=== PATIENT | male | born 1975 | race Caucasian/White ===

== ENCOUNTER → 2023-09-03 | Outpatient (CLI) | payer OTHER ==
--- NOTE | 2023-09-03 16:54 | XR ---
EXAMINATION TYPE: XR chest 2V DATE OF EXAM: 09/03/2023 4:39 PM CLINICAL INDICATION:Male, 47 years old with history of Z87.891; H COMPARISON: None TECHNIQUE: XR chest 2V Frontal and lateral views of the chest. FINDINGS: Lungs/Pleura: There is no evidence of pleural effusion, focal consolidation, or pneumothorax. Pulmonary vascularity: Unremarkable. Heart/mediastinum: Cardiomediastinal silhouette is unremarkable. Musculoskeletal: No acute osseous pathology. IMPRESSION: 1. No acute cardiopulmonary disease process. 2. COPD changes.
== END | disposition home or self-care (01) ==
LOC: RADXRMAIN 16:16
PROVIDERS: ATTEND Internal Medicine
DX: J44.9 Chronic obstructive pulmonary disease, unspecified (principal); Z87.891 Personal history of nicotine dependence
CPT/HCPCS: 71046

== ENCOUNTER 2024-11-08 08:52 | Day surgery (SDC) | payer OTHER ==
[2024-11-08] MEDS: IV FLUID CONTINUATION 1,000 ML IV ONE (10:17)
[2024-11-08 10:27] VITALS: RESP 16; TEMP 97.1
[2024-11-08] MEDS: LACTATED RINGERS 1,000 ML IV SCH (10:29)
[2024-11-08] MEDS ORDERED: PROPOFOL 10 MG/ML 20 ML VIAL IV ONE (11:00)
--- NOTE | 2024-11-08 11:19 | P.PCN ---
Date of Procedure: 11/08/24 Procedure(s) Performed: BRIEF HISTORY: Patient is a 40-year-old pleasant white male scheduled for an elective colonoscopy as a part of screening for colon cancer. PROCEDURE PERFORMED: Colonoscopy. PREOPERATIVE DIAGNOSIS: Screening for colon cancer. IV sedation per Anesthesia. PROCEDURE: After informed consent was obtained, the patient, was brought into the endoscopy unit. IV sedation was administered by Anesthesia under continuous monitoring. Digital rectal examination was normal. Initially the Olympus CF-160 flexible video colonoscope was then inserted in the rectum, gradually advanced into the cecum without any difficulty. Careful examination was performed as the scope was gradually being withdrawn. Ileocecal valve and the appendiceal orifice were visualized and appeared normal. Prep was excellent. Mucosa of the cecum, ascending colon, transverse colon, descending colon, sigmoid colon, and rectum appeared normal. Retroflexion was performed in the rectum and no lesions were seen. The patient tolerated the procedure well. IMPRESSION: Normal-appearing colon from rectum to cecum no evidence of colorectal neoplasia. RECOMMENDATIONS: Findings of this examination were discussed with the patient as well as his family. He was advised to have repeat screening colonoscopy in 10 years..
[2024-11-08 11:48] VITALS: BP 146/94; PULSE 67
== END 2024-11-08 12:08 | disposition home or self-care (01) ==
LOC: ORWHC2ENDO 08:52
PROVIDERS: ATTEND Internal Medicine Gastroenterology
DX: Z12.11 Encounter for screening for malignant neoplasm of colon (principal); I10 Essential (primary) hypertension; E78.5 Hyperlipidemia, unspecified; G47.00 Insomnia, unspecified; F17.200 Nicotine dependence, unspecified, uncomplicated; F12.90 Cannabis use, unspecified, uncomplicated; Z79.899 Other long term (current) drug therapy
CPT/HCPCS: 45378; J2704

== ENCOUNTER 2025-01-05 06:47 | Emergency (ER) | payer OTHER ==
--- NOTE | 2025-01-05 07:03 | ED ---
URI HPI - General Chief Complaint: Upper Respiratory Infection Stated Complaint: cough Time Seen by Provider: 01/05/25 07:03 Source: patient, family, RN notes reviewed Mode of arrival: ambulatory Limitations: no limitations - History of Present Illness Initial Comments: 49-year-old male presenting to the ER for evaluation of cough and fevers. Patient reports for the past 2 days he has had a consistent dry cough. He also notes fevers which have been treated with [id number] Tylenol, last dose around 5 AM. Patient has also tried [id number] Robitussin, Mucinex and Vicks vapor rubs without relief of symptoms. Significant other, at bedside, state patient also tried her albuterol inhaler and Tessalon Perles which did aid with coughing attacks last night. Patient is a smoker. Patient reports his coughing episodes will be so intense that they will cause him to vomit. He denies any nausea, abdominal pain, chest pain, shortness of breath or other complaints - Related Data Home Medications Medication Instructions Recorded Confirmed Cetirizine HCl [Zyrtec] 10 mg PO DAILY 11/07/24 11/08/24 Cyanocobalamin (Vitamin B-12) 1,000 mcg PO DAILY 11/07/24 11/08/24 [Vitamin B-12] Melatonin [Melatonin Tr] 10 mg PO HS 11/07/24 11/08/24 Mirtazapine 30 mg PO HS 11/07/24 11/08/24 Multivitamins, Thera [Multivitamin 1 tab PO DAILY 11/07/24 11/08/24 (formulary)] Potassium Citrate 1 tab PO DAILY 11/07/24 11/08/24 Rosuvastatin [Crestor] 10 mg PO DAILY 11/07/24 11/08/24 lisinopriL [Zestril] 10 mg PO DAILY 11/07/24 11/08/24 rOPINIRole HCL [Requip] 1 mg PO HS 11/07/24 11/08/24 Previous Rx's Medication Instructions Recorded Albuterol Inhaler [Ventolin Hfa 1 - 2 puff INHALATION Q6H PRN #1 01/05/25 Inhaler] each Benzonatate [Tessalon Perles] 100 mg PO TID PRN #15 capsule 01/05/25 Allergies Allergy/AdvReac Type Severity Reaction Status Date / Time No Known Allergies Allergy Verified 01/05/25 06:48 Review of Systems ROS Statement: Those systems with pertinent positive or pertinent negative responses have been documented in the HPI. ROS Other: All systems not noted in ROS Statement are negative. Past Medical History Past Medical History: Hyperlipidemia, Hypertension Additional Past Medical History / Comment(s): seasonal allergies, insomnia History of Any Multi-Drug Resistant Organisms: None Reported Additional Past Surgical History / Comment(s): teeth extraction Past Anesthesia/Blood Transfusion Reactions: No Reported Reaction Past Psychological History: No Psychological Hx Reported Smoking Status: Current every day smoker Past Alcohol Use History: Occasional Past Drug Use History: Marijuana - Past Family History Father History Unknown: Yes Mother Family Medical History: Coronary Artery Disease (CAD), Diabetes Mellitus General Exam Limitations: no limitations General appearance: alert, in no apparent distress ENT exam: Present: normal exam, normal oropharynx, mucous membranes moist, TM's normal bilaterally Neck exam: Present: normal inspection. Absent: tenderness, meningismus, lymphadenopathy Respiratory exam: Present: normal lung sounds bilaterally, wheezes (mild lower lung ascencio). Absent: respiratory distress, rales, rhonchi, stridor Cardiovascular Exam: Present: regular rate, normal rhythm, normal heart sounds. Absent: systolic murmur, diastolic murmur, rubs, gallop, clicks GI/Abdominal exam: Present: soft, normal bowel sounds. Absent: distended, tenderness, guarding, rebound, rigid Extremities exam: Present: normal inspection, full ROM, normal capillary refill. Absent: tenderness, pedal edema, joint swelling, calf tenderness Neurological exam: Present: alert, oriented X3, CN II-XII intact Skin exam: Present: warm, dry, intact, normal color. Absent: rash Course Vital Signs 01/05/25 01/05/25 01/05/25 06:48 08:07 08:15 Temperature 99.9 F H Pulse Rate 83 77 77 Respiratory 18 18 18 Rate Blood Pressure 123/75 O2 Sat by Pulse 96 Oximetry 01/05/25 08:40 Temperature 99.3 F Pulse Rate 70 Respiratory 20 Rate Blood Pressure 154/89 O2 Sat by Pulse 96 Oximetry Medical Decision Making - Medical Decision Making Was pt. sent in by a medical professional or institution (, PA, REHAB PHYSICIAN, urgent care, hospital, or senior living...) When possible be specific @ -No Did you speak to anyone other than the patient for history (EMS, parent, family, police, friend...)? What history was obtained from this source @ -Significant other, at bedside, aiding in HPI and PMhx. Did you review nursing and triage notes (agree or disagree)? Why? @ -I reviewed and agree with nursing and triage notes Were old charts reviewed (outside hosp., previous admission, EMS record, old EKG, old radiological studies, urgent care reports/EKG's, senior living records)? Report findings @ -No old charts were reviewed Differential Diagnosis (chest pain, altered mental status, abdominal pain women, abdominal pain men, vaginal bleeding, weakness, fever, dyspnea, syncope, headache, dizziness, GI bleed, back pain, seizure, CVA, palpatations, mental health, musculoskeletal)? @ -COVID, RSV, influenza, viral sinusitis, pneumonia, strep pharyngitis, this list is not meant to be all-inclusive EKG interpreted by me (3pts min.). @ -None done X-rays interpreted by me (1pt min.). @ -CXR interpreted by me negative for focal consolidations, pneumothorax or pleural effusions CT interpreted by me (1pt min.). @ -None done U/S interpreted by me (1pt. min.). @ -None done What testing was considered but not performed or refused? (CT, X-rays, U/S, labs)? Why? @ -None What meds were considered but not given or refused? Why? @ -None Did you discuss the management of the patient with other professionals (professionals i.e. , PA, REHAB PHYSICIAN, lab, RT, psych nurse, 7th grade social studies teacher, marine farmer, teacher, special assets officer, outsole caser)? Give summary @ -No Was smoking cessation discussed for >3mins.? @ -I discussed smoking cessation for greater than 3 minutes. The risk of smoking were discussed with the patient including but not limited to risks of cancer, stroke, coronary artery disease and COPD. Also discussed with patient were multiple methods of quitting smoking. Lastly we discussed the financial cost of smoking. Was critical care preformed (if so, how long)? @ -No Were there social determinants of health that impacted care today? How? (Homelessness, low income, unemployed, alcoholism, drug addiction, transportation, low edu. Level, literacy, decrease access to med. care, [place] [facility], rehab)? @ -No Was there de-escalation of care discussed even if they declined (Discuss DNR or withdrawal of care, Hospice)? DNR status @ -No What co-morbidities impacted this encounter? (DM, HTN, Smoking, COPD, CAD, Cancer, CVA, ARF, Chemo, Hep., AIDS, mental health diagnosis, sleep apnea, morbid obesity)? @ -Smoker Was patient admitted / discharged? Hospital course, mention meds given and ro manuel, prescriptions, significant lab abnormalities, going to OR and other pertinent info. @ -Discharged. 49 year old male presenting to the ER for evaluation of cough and congestion. Patient with a low-grade temperature of 99.9F, vitals otherwise been acceptable. Patient had no signs of acute distress nontoxic-appearing. Dry cough on exam. Mild wheezing noted throughout lower lung ascencio. Viral swab along with chest x-ray will be obtained. Patient is influenza A positive. Chest x-ray without acute cardiopulmonary process. In the ER, patient received ibuprofen, Tessalon Perles and a DuoNeb breathing treatment with improvement of symptoms upon reevaluation. Results discussed with patient, all questions answered. Patient remained stable throughout ER stay. I advised continue use of mgik-gya-[id number] ibuprofen and Tylenol for fever and symptom control outpatient. Tessalon Perles and albuterol inhaler prescribed. I discussed smoking cessation for greater than 3 minutes. The risk of smoking were discussed with the patient including but not limited to risks of cancer, stroke, coronary artery disease and COPD. Also discussed with patient were multiple methods of quitting smoking. Lastly we discussed the financial cost of smoking. Return parameters discussed. Patient discharged in stable condition with follow-up PCP. Patient and patient's significant other, at bedside, verbally expressed understanding and agreement with care plan. Case discussed with ED attending, Dr. Welsh. @ -No Drug Therapy requiring intensive monitoring for toxicity (Heparin, Nitro, Insulin, Cardizem)? @ -No Were any procedures done? @ -No Diagnosis/symptom? @ -Influenza A/acute viral sinusitis Acute, or Chronic, or Acute on Chronic? @ -Acute Uncomplicated (without systemic symptoms) or Complicated (systemic symptoms)? @ -Default Side effects of treatment? @ -No Exacerbation, Progression, or Severe Exacerbation? @ -No Poses a threat to life or bodily function? How? (Chest pain, [place], [place], pneumonia, PE, COPD, DKA, ARF, appy, cholecystitis, CVA, Diverticulitis, Homicidal, Suicidal, threat to staff... and all critical care pts) @ -Low at this time - Lab Data Lab Results 01/05/25 Range/Units 07:12 Influenza Type A (PCR) Detected A (Not Detectd) Influenza Type B (PCR) Not Detected (Not Detectd) RSV (PCR) Not Detected (Not Detectd) SARS-CoV-2 (PCR) Not Detected (Not Detectd) - Radiology Data Radiology results: report reviewed, image reviewed Disposition Clinical Impression: Influenza A, Acute viral sinusitis Disposition: HOME SELF-CARE Condition: Stable Instructions (If sedation given, give patient instructions): Fever in Adults (ED), Influenza (DC) Additional Instructions: You may take Tessalon Perles and use albuterol inhaler as prescribed. Alternate [id number] ibuprofen and Tylenol for fever control. I highly recommend that you stop smoking. Follow-up with PCP. Return to the ER for any new or worsening concerns Prescriptions: Benzonatate [Tessalon Perles] 100 mg PO TID PRN #15 capsule PRN Reason: Cough Albuterol Inhaler [Ventolin Hfa Inhaler] 1 - 2 puff INHALATION Q6H PRN #1 each PRN Reason: Shortness Of Breath Is patient prescribed a controlled substance at d/c from ED?: No Referrals: Kiarra Mendiola MD [Primary Care Provider] - 1-2 days Time of Disposition: 08:29
[2025-01-05] MEDS: IBUPROFEN 600 MG TAB PO STA (07:16)
[2025-01-05] MEDS: BENZONATATE 100 MG CAP PO STA (07:16)
--- NOTE | 2025-01-05 07:32 | XR ---
EXAMINATION TYPE: XR chest 2V DATE OF EXAM: 01/05/2025 7:27 AM COMPARISON: 09/03/23 CLINICAL INDICATION: Male, 49 years old with history of cough/fever, TECHNIQUE: Frontal and lateral views of the chest are obtained. FINDINGS: There is no focal air space opacity, pleural effusion, or pneumothorax seen. The cardiac silhouette size is within normal limits. The osseous structures are intact. IMPRESSION: No acute cardiopulmonary process. [facility], , 01/05/2025 7:29 AM
[2025-01-05 08:04] LABS: Influenza A Detected (Not Detectd)
[2025-01-05 08:05] LABS: Influenza B Not Detected (Not Detectd); RSV Not Detected (Not Detectd)
[2025-01-05] MEDS: IPRATROPIUM-ALBUTEROL 3 ML NEB INHALATION STA (08:07)
[2025-01-05 08:41] VITALS: BP 154/89; PULSE 70; RESP 20; TEMP 99.3
== END 2025-01-05 08:41 | disposition home or self-care (01) ==
LOC: EC 06:47
DX: J10.1 Influenza due to other identified influenza virus with other respiratory manifestations (principal); J01.90 Acute sinusitis, unspecified; B97.89 Other viral agents as the cause of diseases classified elsewhere; F17.200 Nicotine dependence, unspecified, uncomplicated
CPT/HCPCS: 71046; 87636; 94640; 99284